=== PATIENT | female | born 1945 | race Caucasian/White ===

== ENCOUNTER 2017-09-24 08:14 | Observation (INO) | payer MEDICARE ==
--- NOTE | 2017-09-24 08:48 | ED ---
GI/ HPI - HPI Summary HPI Summary: This is scribe Reno Drummond documenting for Robert Paredes M.D. Patient is a 71 y/o F BIBA w/ c/o dizziness, weakness and inability to ambulate at her baseline. She reports Sx onset three days ago, worsening two days ago, and was taken to [facility] yesterday by daughter. She reports receiving IV fluids and antibiotics there, was diagnosed w/ UTI, and discharged to home with antibiotic and told to follow up with PCP. Patient cannot recall name of prescribed antibiotic in room. She states she still feels "rotten". Dizziness is characterized as room spinning. Difficulty walking is due to dizziness. She denies ear ringing but notes some nausea. Getting up and walking around aggravates dizziness. She reports while lying down she still experiences dizziness and that she wants to sleep a lot. While she does not specifically note any pain in room, on triage, associated pain was rated 7/10. It is also noted resting makes pain better and movement aggravates pain. In room, vitals are O2 sat 96, pulse 86. Patient also notes left ankle swelling. She has a strap on left ankle as well. Patient reports she had an hemangioma in spine, which was removed. However, surgery caused some left side paralysis. She has gone through physical therapy and can get around with a walker. I, Dr. Paredes, personally performed the services described in this documentation as scribed in my presence and it is both accurate and complete. - History of Current Complaint Stated Complaint: WEAKNESS Hx Obtained From: Patient Onset/Duration: Started Days Ago - Sx onset three days ago, Still Present Timing: Constant, Lasting Days - onset 3 days ago Current Severity: Severe - 7/10 on triage Pain Intensity: 7 Associated Signs and Symptoms: Positive: Dizziness, Weakness, Nausea, Other: - NEGATIVE: ear ringing POSITIVE: difficulty ambulating due to dizziness Aggravating Factor(s): Movement Alleviating Factor(s): Rest - Allergy/Home Medications Allergies/Adverse Reactions: Allergies Allergy/AdvReac Type Severity Reaction Status Date / Time Penicillins Allergy Rash Verified 09/24/17 08:22 Home Medications: Home Medications Baclofen TAB* [Lioresal TAB*] 10 mg PO DAILY 09/24/17 [History Confirmed ] Cholecalciferol TAB* [Vitamin D TAB*] 1 tab PO DAILY 09/24/17 [History Confirmed 09/24/17] Meloxicam [Mobic] 15 mg PO DAILY 09/24/17 [History Confirmed 09/24/17] Nitrofurantoin Monohyd/M-Cryst [Macrobid 100 mg Capsule] 100 mg PO BID 09/24/17 [History Confirmed 09/24/17] Omeprazole 40 mg PO DAILY 09/24/17 [History Confirmed 09/24/17] Pregabalin CAP(*) [Lyrica CAP(*)] 150 mg PO DAILY 09/24/17 [History Confirmed ] Rosuvastatin Calcium 5 mg PO DAILY 09/24/17 [History Confirmed 09/24/17] PMH/Surg Hx/FS Hx/Imm Hx History: Reports: Hx Renal Disease - UTI Sensory History: Denies: Hx Legally Blind, Hx Deafness Opthamlomology History: Denies: Hx Legally Blind EENT History: Denies: Hx Deafness Neurological History: Reports: Other Neuro Impairments/Disorders - partial leftside paralysis - Surgical History Surgery Procedure, Year, and Place: hemangioma removal 2004 Infectious Disease History: No Infectious Disease History: Denies: Traveled Outside the [place] in Last 30 Days - Family History Known Family History: Negative: Hypertension - none in father or mother , Diabetes - none in father or mother - Social History Alcohol Use: Occasionally Alcohol Amount: wine Substance Use Type: Reports: None Smoking Status (MU): Former Smoker Review of Systems Positive: Fatigue - weakness Positive: Other - NEGATIVE: ear ringing Positive: Nausea Neurological: Other - dizziness and difficulty ambulating due to dizziness All Other Systems Reviewed And Are Negative: Yes Physical Exam - Summary Physical Exam Summary: Appearance: The patient is well-nourished in no acute distress and in no acute pain. Skin: The skin is warm and dry and skin color reflects adequate perfusion. HEENT: The head is normocephalic and atraumatic. Slight amount of horizontal nystagmus, fast component to left. No other significant ocular findings. The conjunctivae are clear and without drainage. Nares are patent and without drainage. Mouth reveals moist mucous membranes and the throat is without erythema and exudate. The external ears are intact. The ear canals are patent and without drainage. The tympanic membranes are intact. Neck: The neck is supple with full range of motion and non-tender. There are no carotid bruits. There is no neck vein distension. Respiratory: Chest is non-tender. Crackles [address] in lungs bilaterally. No other significant findings. Cardiovascular: Heart is regular rate and rhythm. There is no murmur or rub auscultated. There is no peripheral edema and pulses are symmetrical and equal. Abdomen: The abdomen is soft and non-tender. There are normal bowel sounds heard in all four quadrants and there is no organomegaly palpated. Musculoskeletal: There is no back tenderness noted. Extremities are non-tender with full range of motion. There is good capillary refill. There is no peripheral edema or calf tenderness elicited. Neurological: Patient is alert and oriented to person, place and time. The patient has symmetrical motor strength in all four extremities. Cranial nerves are grossly intact. Deep tendon reflexes are symmetrical and equal in all four extremities. Psychiatric: The patient has an appropriate affect and does not exhibit any anxiety or depression. Triage Information Reviewed: Yes Vital Signs On Initial Exam: Initial Vitals Temp Pulse Resp BP Pulse Ox 98.4 F 90 21 110/58 96 09/24/17 08:19 09/24/17 08:19 09/24/17 08:19 09/24/17 08:19 09/24/17 08:19 Vital Signs Reviewed: Yes Diagnostics - Vital Signs Vital Signs Temp Pulse Resp BP Pulse Ox 09/24/17 08:19 98.4 F 90 21 110/58 96 - Laboratory Result Diagrams: 09/24/17 09:38 09/24/17 09:38 Lab Statement: Any lab studies that have been ordered have been reviewed, and results considered in the medical decision making process. - Ultrasound No standard instances Ultrasound Interpretation: Positive (See Comments) Ultrasound Interpretation Completed By: Radiologist - Gallbladder US: IMPRESSION : #. Normal size liver is remarkable for increased parenchymal echogenicity which may be seen in setting of hepatitis. No focal liver lesions evident. #. Adequately distended gallbladder is remarkable for diffuse minimal wall thickening measuring up to 3.2 mm, a nonspecific finding in setting of hepatitis , and a large volume of biliary sludge. No conspicuous cholelithiasis. #. Small volume of ascites. #. Suggestion of mild cortical atrophy and increased cortical echogenicity RIGHT kidney concerning for presence of medical renal disease. This report was reviewed by ED physician. - EKG 1012 Cardiac Rate: NL - rate of 75 BPM EKG Rhythm: Sinus Rhythm Ectopy: PVCs EKG Interpretation: vertical axis; no STEMI Re-Evaluation - Re-Evaluation First Eval Re-Evaluation Time: 13:04 Comment: Discussed results of labs and imaging. Patient is agreeable with plan for admission to hospital. GIGU Course/Dx - Course Course Of Treatment: Ms. Lawson presented with some vague complaints. She is taking trimethoprim sulfamethoxazole for presumed UTI. She was found to have hepatitis with mild ascites and a normal gallbladder. The hospitalists were asked to evaluate her for admission. - Diagnoses Provider Diagnoses: Hepatitis - Physician Notifications Discussed Care Of Patient With: Bakari Villarreal Time Discussed With Above Provider: 12:54 Instructed by Provider To: Other - Dr. Villarreal was consulted on patient's case at 12:54. Dr. Villarreal agrees to accept patient for admission to [facility] [place]. Discharge - Sign-Out/Discharge Documenting (check all that apply): Patient Departure - admit - Discharge Plan Condition: Good Disposition: ADMITTED TO [facility] - Billing Disposition and Condition Condition: GOOD Disposition: Admitted to [facility]
[2017-09-24] MEDS ORDERED: NS 0.9% 1000 ML* 1,000 ML IV ONE (09:34)
[2017-09-24 09:56] LABS: ABS Basophils 0 10^3/ul (0-0.2); ABS Eosinophils 0 10^3/ul (0-0.6); ABS Lymphocytes 0.4 10^3/ul (1.0-4.8); ABS Monocytes 0.7 10^3/ul (0-0.8); ABS Neutrophils 9.9 10^3/ul (1.5-7.7); ABS Nucleated RBC 0 10^3/ul; Eosinophil % 0.2 % (0-6); Hematocrit 32 % (35-47); Hemoglobin 10.5 g/dl (12.0-16.0); Lymphocyte % 3.3 % (25-47); Mean Corpuscular HGB Conc 33 g/dl (31-36); Mean Corpuscular Hemoglobin 28 pg (27-31); Mean Corpuscular Volume 84 fL (80-97); Nucleated Red Blood Cells % 0; Platelet Count 180 10^3/ul (150-450); Red Cell Distribution Width 15 % (10.5-15)
--- NOTE | 2017-09-24 12:00 | RAD ---
Indication: Hepatitis. Comparison: No relevant prior exams available on the [facility] PACS for comparison. Technique: RIGHT upper quadrant ultrasound. Report: Appropriate direction flow documented in the portal and hepatic veins. 18.1 cm liver is increased in echogenicity. Negative for focal hepatic lesions. Negative for intrahepatic biliary dilatation. 13 mm common bile duct. Negative for conspicuous stones within the visualized segment of the common bile duct. Adequately distended gallbladder is remarkable for diffuse minimal wall thickening measuring up to 3.2 mm and large volume of biliary sludge. No shadowing echogenic foci to indicate cholelithiasis. Negative for sonographic Encarnacion's sign. Atrophic pancreas without ductal dilatation or acute sonographic abnormality. Small volume of ascites at Morison's pouch. 10.5 x 4.0 x 5.3 cm RIGHT kidney cortical atrophy and increased cortical echogenicity favoring presence of medical renal disease. No focal renal lesions, conspicuous stones, or hydronephrosis. IMPRESSION: #. Normal size liver is remarkable for increased parenchymal echogenicity which may be seen in setting of hepatitis. No focal liver lesions evident. #. Adequately distended gallbladder is remarkable for diffuse minimal wall thickening measuring up to 3.2 mm, a nonspecific finding in setting of hepatitis, and a large volume of biliary sludge. No conspicuous cholelithiasis. #. Small volume of ascites. #. Suggestion of mild cortical atrophy and increased cortical echogenicity RIGHT kidney concerning for presence of medical renal disease.
[2017-09-24 13:58] LABS: Urine Appearance Clear; Urine Blood 1+ (Negative); Urine Color Yellow; Urine Ketones 1+ (Negative); Urine Protein Negative (Negative); Urine Red Blood Cell 2+(6-10/hpf) (Absent); Urine Specific Gravity 1.009 (1.010-1.030); Urine Urobilinogen Positive (Negative); Urine White Blood Cell 2+(11-20/hpf) (Absent)
[2017-09-24] MEDS ORDERED: Ciprofloxacin 200mg IVPREMIX(* 200 MG/100 ML BAG IV STA (15:42)
[2017-09-24] MEDS: traMADol TAB* 50 MG PO PRN (16:10)
--- NOTE | 2017-09-24 17:02 | RAD ---
INDICATION: Liver dysfunction COMPARISON: Gallbladder sonogram same date TECHNIQUE: Axial source images were obtained from the hemidiaphragms to the symphysis pubis following administration of oral contrast only. Coronal and sagittal reconstructed images were acquired. Lung bases: There is minimal atelectasis right lung base. Liver: The noncontrast CT appearance the liver is unremarkable. Gallbladder: The gallbladder is distended. There is a small amount of sludge or gravel in the dependent portion of the gallbladder. The common duct is dilated and there are multiple small gallstones in the distal common bile duct Spleen: Noncontrast CT appearance the spleen is unremarkable. Pancreas: Noncontrast imaging of the pancreas demonstrate no specific abnormalities. Evaluation is limited without intravenous contrast. Adrenal glands: There is no adrenal mass. Kidneys: The noncontrast CT appearance the kidneys are unremarkable. There is no hydronephrosis or nephrolithiasis. Adenopathy: There is no evidence of adenopathy by size criteria. Fluid collections: There are no free or localized fluid collections. Vessels:There are no significant atherosclerotic changes involving the aorta. There is no focal aneurysm. The iliac vessels are normal in caliber. The IVC appears normal. GI tract: There are no acute CT bowel findings. There is no obstruction. The stomach and small bowel appear normal. The lower GI tract is normal. The cecum, ileocecal valve, and terminal ileum appear normal. The appendix is visualized and appear normal. Pelvic organs: The uterus and adnexa appear normal Bladder: There are no bladder masses. Abdominal and pelvic soft tissues: The extraperitoneal abdominal and pelvic soft tissues appear normal.. Osseous structures: There are no acute osseous findings. Other: None IMPRESSION: IMAGING WITHOUT INTRAVENOUS CONTRAST SHOWS CHOLEDOCHOLITHIASIS AND A DISTENDED GALLBLADDER. CONSIDER GI REFERRAL.
--- NOTE | 2017-09-24 17:34 | HP ---
CC: Dr. Robles; Dr. Villarreal* ADMISSION HISTORY AND PHYSICAL: DATE OF ADMISSION: 09/24/17 PRIMARY CARE PROVIDER: Dr. Robles MY ATTENDING FOR THIS ADMISSION AND FOR TODAY: Dr. Karel Villarreal* (dictated by Simba Meehan NP). CHIEF COMPLAINT: Weakness and malaise. HISTORY OF PRESENT ILLNESS: This is a 71-year-old female patient who went to the ER at [place] yesterday for the same complaint. The patient stated she was feeling weak. She does have urinary incontinence at baseline. Her urine was screened while she was in the ED there. She was treated with IV antibiotics that is unknown and sent home on nitrofurantoin until to follow up with her primary care provider. She states today that her weakness is worse that she has just generalized malaise. Overall, she is feeling very fatigued and it has been difficult for her to function over the last 24 hours. She called emergency services. She was brought here for evaluation. Upon exam in the emergency department, she has no fever; however, she does have abnormal lab values. At this point, her liver function is greatly elevated. Creatinine slightly elevated. She does have a mild white count. It appears that she may have an acute hepatitis, although we are unsure at this time. We are being asked to evaluate for admission. She will be admitted to observation status. PAST MEDICAL HISTORY: Significant for chronic pain, left-sided hemiparesis. PAST SURGICAL HISTORY: Significant for resection and evacuation of a cervical hemangioma in 2004. MEDICATIONS: Current medications at home: 1. Baclofen 10 mg 3 times a day. 2. Hydrocodone unknown dose 3 times a day. 3. Lyrica 150 mg 3 times a day. 4. Omeprazole 40 mg daily. 5. Meloxicam 1 tablet daily. 6. Vitamin D 50,000 units weekly. 7. Rosuvastatin 1 tablet daily, again unknown dose. ALLERGIES: The patient has an allergy to PENICILLIN for which she has full body rash. SOCIAL HISTORY: The patient does not smoke. Drinks alcohol only socially. Denies any illicit drug use. FAMILY HISTORY: She does have father with some cardiac disease. Her healthcare proxy is her daughter, Shea, who is at the bedside. REVIEW OF SYSTEMS: The patient is complaining about some neck pain and general malaise as stated. She has no fever or chills. She does have marked general weakness and fatigue. She has chronic numbness and tingling on the left upper extremity and the left lower extremity. She denies any chest pain. No shortness of breath. No cough. No nausea, vomiting, diarrhea, or constipation. She does have mild right upper quadrant pain. Denies any rashes. Denies any bleeding or bruising. Denies excessive thirst or urination. She does have some urinary incontinence and some frequency at baseline. No chest pain, palpitations, or further constitutional complaints. PHYSICAL EXAMINATION GENERAL: The patient is alert, appears tired. VITAL SIGNS: Currently, blood pressure 150/66, heart rate 61, respiratory rate 14, O2 saturation 99% on room air. HEENT: The patient is atraumatic, normocephalic. PERRLA with nonicteric sclerae. Oral mucosa is moist. Tongue is midline. NECK: Supple. No JVD noted and no carotid bruit auscultated. LUNGS: Clear bilaterally to auscultation with no wheezing, rhonchi, or rales. CARDIOVASCULAR: S1, S2 present. Rate and rhythm are regular. No murmurs, gallops, or rubs appreciated. ABDOMEN: Soft, mildly distended. She has moderate to severe right upper quadrant pain around the area with palpation. She does not appear to have any organomegaly. : Deferred. MUSCULOSKELETAL: There is no clubbing and no cyanosis. No edema. She has +2 distal pulses palpable at baseline. She ambulates with a walker. NEUROLOGIC: She has left side weaker than the right secondary to her surgery. This is her baseline. Left girth is weaker. She does wear a brace. She cannot plantar flex or dorsiflex in the left lower extremity. This is also her baseline. PSYCHIATRIC: She is cooperative and appropriate, although she does appear to have a flat affect. LABORATORY DATA: WBCs 11.0, RBCs 3.80, hemoglobin 10.5, hematocrit 32, platelets 180. Sodium 136, potassium 4.3, chloride 104, CO2 25, BUN 19, creatinine 1.19, GFR 45, glucose 120. Lactic acid 0.7. Calcium 8.5. Magnesium 2.0. Bilirubin 2.00 up from 1.1 yesterday, AST is 1125 up from 538 yesterday, ALT is 828 up from 616 yesterday, and alk phos is 630 up from 480 yesterday. Troponin is negative at 0.02. Total protein 6.1, albumin 3.4, globulin 2.7, TSH is 2.44. Urinalysis shows yellow clear urine, pH of 5, specific gravity of 1.009, 1+ ketones, 1+ blood, positive for urobilinogen, trace leuk esterase, 2+ wbc's, 2+ rbc's and squamous epithelial cells present; negative for nitrites and negative for bacteria, negative for glucose. IMPRESSION: This is a 71-year-old female patient with general fatigue and malaise with transaminitis and also recent diagnosis of urinary tract infection. PLAN: The patient will be admitted to observation as stated earlier. DIAGNOSES: 1. Weakness and fatigue. It is unclear whether this is secondary to her urinary tract infection or underlying hepatitis. Given her laboratory values today, it is questionable that the patient may have an acute on chronic hepatitis. We will continue antibiotics for her urinary tract infection and reach out to the pharmacy for the least liver toxic antibiotic that we have available and appropriate for her. We talked with Dr. Lavonne Segura of GI. She did have an ultrasound of the gallbladder earlier today, which revealed common bile duct is 13 mm, normal sized liver, remarkable for increased parenchymal echogenicity, which may be seen in the setting of hepatitis; however , there are no focal liver lesions evident. She has an adequately distended gallbladder, remarkable for diffuse minimal wall thickening measuring 3.2 mm and nonspecific finding and in the setting of hepatitis and large volume of biliary sludge, no suspicious cholelithiasis, a small volume of ascites, suggestion of mild cortical atrophy and increased cortical echogenicity of the right kidney concerning for presence of medical renal disease. Dr. Segura has also recommended that we do a CAT scan with oral contrast only to further evaluate her GI tract. Given her mildly elevated renal function, we will hold off on IV contrast. Dr. Segura will see her. In terms of the rest of her transaminitis, we will follow her labs daily and withhold any liver toxic medications. 2. For her chronic pain, I stopped her meloxicam, placed her on tramadol, which hopefully will have minimal impact on her liver function. We can continue her baclofen 3 times a day. Also, changing her to gabapentin from Lyrica again because of the liver dysfunction. For now, she will be n.p.o. We will start her on mild dose of fluids and maintenance. 3. For DVT prophylaxis, her INR is actually normal. I thought it would be elevated given her liver dysfunction; however, we would still place her on SCDs because this may elevate at anytime. We will also check her coagulation studies daily to ensure that these are not elevating as well. Again, DVT prophylaxis with SCDs only. 4. She is a full code. As stated earlier, her daughter, Shea is her healthcare proxy. The rest of the patient's course will be determined by further diagnostics, laboratories, and any other input from other providers as warranted during this admission. TIME SPENT: I have spent an excess of 1 hour, [id number] with the patient, going through her plan of care and coordinating with other providers in terms of her admission. This plan has been discussed with Dr. Karel Villarreal, the attending and he is in agreement. SIMBA MEEHAN, HILARIO [id number]/CPS #: [id number]
--- NOTE | 2017-09-24 18:56 | CONS ---
CC: Urvashi Mohan NP; Dr. Lavonne Segura GASTROENTEROLOGY CONSULTATION: DATE OF CONSULT: 09/24/17 HOSPITAL PROVIDER: Urvashi Mohan NP REASON FOR CONSULT: Elevated liver enzymes. HISTORY OF PRESENT ILLNESS: Ms. Lawson is a pleasant 71-year-old female with a history of partial left-sided hemiparesis, hyperlipidemia, who presented to [facility] ER after being discharged from an outside hospital for a urinary tract infection. She came in with complaints with persistent weakness over the last few days. Upon arrival to the emergency room, she was noted to have a slightly elevated WBC count of 11.0, renal insufficiency with a creatinine of 1.19 and elevated liver enzymes including a total bilirubin of 2.0 , AST of 1125, ALT 828, alkaline phosphatase 630. Her urinalysis confirmed a urinary tract infection. Gastroenterology was consulted for further evaluation of the patient's elevated liver enzymes. The patient denies any current abdominal pain, nausea, vomiting, fever, chills, myalgias, change in bowel habits, rectal bleeding, or history of jaundice. She denies a prior history of elevated liver enzymes. She unfortunately has not had recent lab work done from her primary care physician as her brother recently and she does not want to be a burden to her daughter, so we do not have current baseline enzymes for her at this time. She does admit to occasional use of wine with dinner. She denies tobacco, illicit drug use. Her medication list does include oxycodone, Lyrica, Mobic and baclofen for chronic neck pain, and rosuvastatin for hyperlipidemia. She has been on all these medications for several years. She was recently started on nitrofurantoin yesterday for her urinary tract infection. No history of tattoos, blood transfusions, or need for hemodialysis. PAST MEDICAL HISTORY: 1. GERD. 2. Hyperlipidemia. 3. Vitamin D deficiency. 4. Partial left hemiparesis. 5. Chronic neck pain. PAST SURGICAL HISTORY: 1. Removal of cervical hemangioma in 2004. HOME MEDICATIONS: 1. Baclofen. 2. Cholecalciferol. 3. Meloxicam. 4. Nitrofurantoin. 5. Omeprazole 40 mg daily. 6. Lyrica. 7. Rosuvastatin. ALLERGIES TO MEDICATIONS: PENICILLIN, which causes a rash. FAMILY HISTORY: Denies history of gastrointestinal malignancie or liver issues. SOCIAL HISTORY: Occasionally drinks wine. Denies tobacco or illicit drug use. REVIEW OF SYSTEMS: Review of systems on a 14-point scale has been reviewed. All pertinent positives and negatives have been noted above in the HPI. PHYSICAL EXAM: Vital Signs: Temperature 98.0, pulse 60, respirations 16, 98% on room air, blood pressure 143/66. Generally, the patient is alert and oriented x3, in no acute distress. HEENT: Normocephalic, atraumatic. Extraocular muscles intact. Mild scleral icterus bilaterally. Cardiovascular Exam: Regular rate and rhythm. Pulmonary Exam: Clear to auscultation bilaterally. Abdominal Exam: Positive bowel sounds. Soft, nontender, nondistended. No rebound, guarding, or rigidity. No hepatosplenomegaly. No surgical scars. Extremities: No clubbing, cyanosis, or edema. Her left lower extremity is in an immobilizer. Neurological Exam: No gross focal deficits are appreciated. DIAGNOSTIC STUDIES/LAB DATA: WBC is 11.0, hemoglobin 10.5, hematocrit 32, platelets 180. INR 1.0. Sodium 136, potassium 4.3, chloride 104, CO2 25, anion gap 7, BUN 19, creatinine 1.19, lactic acid 0.7, calcium 8.5. Total bilirubin 2.0, AST 1125, ALT 828, alkaline phosphatase 630. Troponin 0.02. Total protein 6.1. TSH 2.44. ASSESSMENT AND PLAN: Ms. Lawosn is a pleasant 71-year-old female with a past medical history of hyperlipidemia, on rosuvastatin, partial left-sided hemiparesis, chronic neck pain, on oxycodone, Lyrica, baclofen, meloxicam, who presented to [facility] 1 day after discharge from an outside hospital for symptoms of weakness and was noted to significantly elevated liver function tests. Yesterday, she was discharged after being diagnosed with a urinary tract infection and elevated liver enzymes. She was started on nitrofurantoin. She admits to drinking occasionally and denies family history of liver issues including fatty liver. She did have a gallbladder ultrasound that was performed in the ER revealing a normal size liver and a distended gallbladder with diffuse minimal wall thickening measuring up to 3.2 mm. There was a large amount of biliary sludge noted and small volume of abdominal ascites. The CBD was noted to be 13 mm. Her pancreas appeared atrophic. Her liver enzymes with a total bilirubin of 2.0, AST 1125, ALT 828, and alkaline phosphatase 630. She denies a prior history of elevated liver enzymes; however , she has been unable to get recent lab work done due to her brother passing away and not wanting to be a burden of her daughter. She denies any current myalgias or recent travels. Denies any previous history of tattoos or blood transfusions or need for hemodialysis. Her INR on admission was 1.0. She is mentating normally at this time and not showing signs of acute liver failure. Given elevations in liver enzymes, would at first consider any medications that could be contributing including oxycodone; however, she states she takes this medicine 3 times daily and usually not more than this. She is also on rosuvastatin, Mobic, and recently started on nitrofurantoin for this urinary tract infection, which could all be contributing to her elevated liver enzymes. I discussed this case with Urvashi Mohan and we will order a CT abdomen/pelvis with oral contrast due to dilated CBD of 13 mm seen on gallbladder ultrasound to rule out choledocholithiasis. She has renal insufficiency so will hold off on IV contrast. I would continue to monitor the patient's INR to follow the patient's synthetic liver function if CT is negative for choledocholithiasis given significant elevation in liver enzymes. If these elevations are secondary to medications, these should progressively return back to normal after eliminating the culprit. If symptoms do not improve , we will consider performing an autoimmune liver workup and possible liver biopsy in the future for further evaluation if elevation in liver enzymes persist. In the meantime, would encourage IV fluid hydration, discontinuing nitrofurantoin, oxycodone, Mobic and rosuvastatin in order to see if liver enzymes improve. Thank you, Urvashi Mohan, for allowing us to participate in the care of your patient. If you should have any further questions or concerns, please do not hesitate to contact us. [id number]/[facility] #: [id number] EDELMIRA
[2017-09-24] MEDS: Gabapentin CAP(*) 100 MG PO SCH (21:38)
[2017-09-24] MEDS: Baclofen TAB* 10 MG PO SCH (21:38)
[2017-09-25] MEDS: traMADol TAB* 50 MG PO PRN ×2 (02:02→16:37)
[2017-09-25] MEDS ORDERED: Omeprazole CAP* 20 MG ONE (05:11)
[2017-09-25] MEDS: Ciprofloxacin 200mg IVPREMIX(* 200 MG/100 ML BAG IV SCH ×2 (05:15→17:03)
[2017-09-25 06:36] LABS: ABS Basophils 0 10^3/ul (0-0.2); ABS Eosinophils 0.3 10^3/ul (0-0.6); ABS Lymphocytes 1.2 10^3/ul (1.0-4.8); ABS Monocytes 0.5 10^3/ul (0-0.8); ABS Neutrophils 5.2 10^3/ul (1.5-7.7); ABS Nucleated RBC 0 10^3/ul; Eosinophil % 3.6 % (0-6); Hematocrit 31 % (35-47); Hemoglobin 10.1 g/dl (12.0-16.0); Lymphocyte % 16.2 % (25-47); Mean Corpuscular HGB Conc 33 g/dl (31-36); Mean Corpuscular Hemoglobin 28 pg (27-31); Mean Corpuscular Volume 84 fL (80-97); Nucleated Red Blood Cells % 0.1; Platelet Count 173 10^3/ul (150-450); Red Blood Count 3.63 10^6/ul (4.00-5.40); Red Cell Distribution Width 16 % (10.5-15); White Blood Count 7.1 10^3/ul (3.5-10.8)
[2017-09-25 06:43] LABS: INR 1.04 (0.77-1.02)
[2017-09-25 06:49] LABS: EGFR Non-African American 75.5 (>60)
[2017-09-25] MEDS ORDERED: Omeprazole CAP* 20 MG PO SCH (07:30)
[2017-09-25] MEDS: Baclofen TAB* 10 MG PO SCH ×2 (09:48→16:37)
[2017-09-25] MEDS: Gabapentin CAP(*) 100 MG PO SCH ×2 (09:48→16:37)
[2017-09-25] MEDS ORDERED: D5LR 20 MEQ KCL 1000 ML BAG* 1,000 ML IV SCH (10:00)
--- NOTE | 2017-09-25 14:01 | TRS ---
CC: Dr. Robles; Dr. Aggarwal; Dr. Segura.* TRANSFER SUMMARY: DATE OF ADMISSION: 09/24/17. DATE OF TRANSFER: To [facility] in [place], [place], . PRIMARY CARE PROVIDER: Dr. Braswell. ADMITTING PHYSICIAN: Dr. Aggarwal. REASON FOR TRANSFER: Transaminitis with common bile duct obstruction with common bile duct stone, need for ERCP. SECONDARY DIAGNOSIS: History of resection and evacuation of cervical hemangioma in 2004 with resultant left-sided hemiparesis. CURRENT MEDICATIONS: Include: 1. D5LR 20 mEq of potassium at 75 mg an hour. 2. Baclofen 10 mg p.o. t.i.d. 3. Ciprofloxacin 200 mg every 12 hours. 4. Gabapentin 200 mg 3 times a day. 5. Omeprazole 40 mg p.o. daily. 6. Ultram 50 mg on a p.r.n. basis. LABORATORY DATA AND STUDIES PERFORMED DURING THE HOSPITAL STAY: Included: On 09/25/17, white blood cell count of 7.1, hemoglobin of 10.1, hematocrit of 31 , and platelets of 173. Sodium was 137, potassium 4.3, chloride 104, carbon dioxide 24, BUN 13, creatinine 0.76. Liver function test showed bilirubin of 1.2, AST of 328, ALT of 548, alkaline phosphatase of 554. Urinalysis on admission shows white blood cell +2, RBCs +2, urine urobilinogen positive, blood +1, ketones +1, negative for bacteria, negative for nitrates. Acute hepatitis panel was negative. CT of the abdomen and pelvis obtained on 09/24/17. Impression: "Imaging without intravenous contrast showed choledocholithiasis and distended gallbladder. Consider GI referral." Gallbladder ultrasound. Impression: "Normal size liver is remarkable for increased parenchymal echogenicity, which may be seen in a setting of hepatitis. No focal liver lesions evident. Adequately distended gallbladder is remarkable for diffuse, minimal wall thickening measuring upto 3.2 mm and nonspecific findings in the setting of hepatitis and a large volume of biliary sludge. No suspicious for cholelithiasis. Small volume of ascites. Suggestive of mild cortical atrophy and increased cortical echogenicity of the right kidney concerning for presence of medical renal disease." "Furthermore, in the body of report it showed 13 mm common bile duct, but no stones within the visualized segment of the common bile duct." HOSPITALIZATION COURSE: Amaris Lawson is a 71-year-old female with history of chronic left-sided weakness due to surgery for hemangioma in the past, who presented complaining of discolored urine. Initially, she was seen at [facility] in [place], [place] where she was prescribed nitrofurantoin for possibility of UTI. At that point, she did have a liver function test evaluation and they were increased. It does not appear that, that was addressed at [facility]. The patient came into our facility complaining of worsening weakness and continuation of problems with urine of dark color. Her liver function test at that point was markedly elevated with bilirubin of 2. She was admitted to our facility and Dr. Segura from Gastroenterology saw the patient in consultation. Initially, the patient apparently had some right upper quadrant abdominal pain, but that resolved by the time of transfer today. The patient's urinalysis was questionable and ciprofloxacin was started at admission. Dr. Segura saw the patient in consultation and recommended ultrasound of the gallbladder and common bile duct, which showed common bile duct dilatation. CT of the abdomen also showed common bile duct stones. On 09/25/17, the patient's liver function test were improved. Nevertheless as per Dr. Segura's recommendation, the patient will need ERCP that unfortunately is not available at our facility. I spoke with the patient who requested to be transferred to [facility] as her first choice. I contacted [facility] and hospitalist there accepted the patient for transfer for ERCP. At the time of transfer, the patient is hemodynamically stable, afebrile, alert and oriented. On physical exam, blood pressure of 142/73, heart rate of 68 and regular, respiratory rate 20, oxygen saturation 97% on room air, temperature 97.4. General: The patient is very pleasant 71-year-old female, who is in no acute distress. Alert, awake, oriented x3. HEENT: Head: Atraumatic, normocephalic. Eyes: Pupils are equal, reactive to light and accommodation. Oropharynx is clear. Mucosa moist. Neck: Supple. No JVD. No bruits bilaterally. Cardiovascular: Regular rate and rhythm. No murmur. Respiratory: Clear to auscultation bilaterally. Abdomen: Soft, nontender. Bowel sounds are present in all 4 quadrants. Extremities: There is no edema. Pulses are +2 bilaterally. No clubbing or cyanosis. Neuro Evaluation: Speech is clear. Cranial nerves II through XII are grossly intact. Motor strength is 5/5 bilaterally. Notable for mild left-sided upper extremity and lower extremity weakness, which is chronic. The patient is going to be transferred to [facility] for ERCP and further evaluation of common bile duct stone/choledocholithiasis. Please note that this is a short summary of the patient's hospital stay. Please refer to further medical record for details. TIME SPENT: Approximately 45 minutes were spent on the patient's transfer. [id number]/[facility] #: [id number] EDELMIRA
[2017-09-25 15:35] VITALS: BP 154/66
== END 2017-09-25 17:45 | disposition short-term general hospital (02) ==
LOC: ED 08:14 → MED 14:39
PROVIDERS: ADMIT Internal Medicine; ATTEND Internal Medicine
DX: R53.1 Weakness (principal); K75.9 Inflammatory liver disease, unspecified; R42 Dizziness and giddiness; R53.83 Other fatigue; R11.0 Nausea; Z87.891 Personal history of nicotine dependence
CPT/HCPCS: 36415; 74176; 76705; 80053; 80074; 81003; 81015; 83605; 83735; 84443; 84484; 85025; 85610; 87086; 93005; 99283; A9270-GY; G0378; J0744

== ENCOUNTER 2020-08-28 20:36 | Observation (INO) ==
[2020-08-28] MEDS ORDERED: Diltiazem IV push/loading dose 5 MG/ML 5 ML vial (25 mg) IV SLOW PU ONE (21:20)
[2020-08-28 21:26] LABS: ABS Eosinophils 0.1 10^3/ul (0-0.6); ABS Lymphocytes 1.5 10^3/ul (1.0-4.8); ABS Monocytes 0.5 10^3/ul (0-0.8); ABS Neutrophils 7.6 10^3/ul (1.5-7.7); Eosinophil % 0.5 %; Hematocrit 38 % (35-47); Hemoglobin 12.4 g/dL (12.0-16.0); Lymphocyte % 15.7 %; Mean Corpuscular HGB Conc 33 g/dL (31-36); Mean Corpuscular Hemoglobin 27 pg (27-31); Mean Corpuscular Volume 82 fL (80-97); Mean Platelet Volume 8.7 fL (7.4-10.4); Platelet Count 300 10^3/uL (150-450); Red Blood Count 4.64 10^6 /uL (3.70-4.87); Red Cell Distribution Width 16 % (10-15); White Blood Count 9.7 10^3/uL (3.5-10.8)
[2020-08-28 21:47] LABS: Troponin I 0.01 ng/mL (<0.03)
[2020-08-28 22:08] LABS: TSH Ultra Thyroid Stim Horm 2.66 mcIU/mL (0.34-5.60)
[2020-08-28 22:57] LABS: Anion Gap 6 mmol/L (2-11); Blood Urea Nitrogen 174 mg/dL (6-24); CO2 Carbon Dioxide 27 mmol/L (22-32); Chloride 104 mmol/L (101-111); Glucose 105 mg/dL (70-100); Sodium 137 mmol/L (135-145)
[2020-08-28 22:58] LABS: ALT 16 U/L (7-52); Albumin 3.9 g/dL (3.2-5.2); Albumin/Globulin Ratio 1.2 (1-3); Alkaline Phosphatase 59 U/L (35-149); Calcium 8.8 mg/dL (8.6-10.3); EGFR African American 63.7 (>60); EGFR Non-African American 52.7 (>60); Globulin 3.2 g/dL (2-4); Total Protein 7.1 g/dL (6.4-8.9)
[2020-08-29 01:29] LABS: Hematocrit 36 % (35-47)
[2020-08-29 01:47] LABS: Calcium 8.6 mg/dL (8.6-10.3); EGFR African American 74.5 (>60); EGFR Non-African American 61.5 (>60); Magnesium 1.9 mg/dL (1.9-2.7); Potassium 3.7 mmol/L (3.5-5.0)
[2020-08-29] MEDS ORDERED: Diltiazem (ADVAN VIAL) 100 MG/100 ML ADDV.BAG IV SCH (02:00)
[2020-08-29 02:09] LABS: Phosphorus 3.5 mg/dL (2.5-5.0)
[2020-08-29] MEDS ORDERED: Potassium Chlor 20 meq TAB.ER PO ONE (08:22)
[2020-08-29] MEDS ORDERED: Magnesium Sulfate 2 gm BAG 2 GM/50 ML BAG IVPB ONE (08:23)
[2020-08-29] MEDS ORDERED: fentaNYL 100 mcg/2 ml 50 MCG/ML VIAL ONE (12:56)
[2020-08-29] MEDS ORDERED: Flumazenil 0.5 mg/5 ml 0.1 MG/ML 5 ml VIAL ONE (12:56)
[2020-08-29] MEDS ORDERED: Naloxone 0.4 mg VIAL 0.4 mg/ml 1 ml VIAL ONE (12:56)
[2020-08-29] MEDS ORDERED: Midazolam 5 mg/5 ml VIAL 1 mg/ml 5 ml VIAL (5 mg) ONE (12:56)
[2020-08-29 16:45] VITALS: BP 118/56
== END 2020-08-29 16:50 | disposition home or self-care (01) ==
LOC: MEDTELE 20:36 → ED 20:36
PROVIDERS: ADMIT Pediatrics; ATTEND Internal Medicine

== ENCOUNTER 2021-04-05 18:33 | Observation (INO) ==
[2021-04-05 19:32] LABS: Hematocrit 27 % (35-47); Hemoglobin 8.1 g/dL (12.0-16.0); Mean Corpuscular HGB Conc 31 g/dL (31-36); Mean Corpuscular Hemoglobin 20 pg (27-31); Mean Corpuscular Volume 66 fL (80-97); Platelet Count 345 10^3/uL (150-450); Red Blood Count 4.01 10^6 /uL (3.70-4.87); Red Cell Distribution Width 21 % (10-15); White Blood Count 9.7 10^3/uL (3.5-10.8)
[2021-04-05 19:57] LABS: ALT 9 U/L (7-52); AST 15 U/L (13-39); Albumin 3.9 g/dL (3.2-5.2); Albumin/Globulin Ratio 1.3 (1-3); Alkaline Phosphatase 65 U/L (35-149); Anion Gap 5 mmol/L (2-11); Blood Urea Nitrogen 16 mg/dL (6-24); CO2 Carbon Dioxide 30 mmol/L (22-32); Calcium 8.9 mg/dL (8.6-10.3); Chloride 100 mmol/L (101-111); Globulin 3.1 g/dL (2-4); Glucose 101 mg/dL (70-100); Sodium 135 mmol/L (135-145); eGFR CKD-EPI 58.8 (>60)
[2021-04-05 20:02] LABS: ABS Eosinophils 0.2 10^3/ul (0-0.6); ABS Lymphocytes 1.3 10^3/ul (1.0-4.8); ABS Monocytes 0.7 10^3/ul (0-0.8); ABS Neutrophils 7.5 10^3/ul (1.5-7.7); Eosinophil % 1.9 %; Lymphocyte % 13.4 %
[2021-04-05 20:12] LABS: TSH Ultra Thyroid Stim Horm 6.21 mcIU/mL (0.34-5.60)
[2021-04-05 23:41] LABS: % Iron Saturation 4 % (15-55); Iron < 20 ug/dL (50-212); Total Iron Binding Capacity 463 mcg/dL (250-450); Transferrin 331 mg/dL (203-362); Unsaturated Iron Binding 443 ug/dL
[2021-04-06 00:01] LABS: Ferritin 4.2 ng/mL (11-307)
[2021-04-06 00:05] LABS: LDH 197 U/L (140-271)
[2021-04-06 00:31] LABS: Folate 14.41 ng/mL (5.90-24.80)
[2021-04-06 00:32] LABS: Vitamin B12 92 pg/mL (180-914)
[2021-04-06] MEDS ORDERED: Iron Sucrose 200 MG in NS 0.9% 100 ml BAG 100 ML IVPB ONE ×2 (01:09→19:30)
[2021-04-06 02:42] LABS: Hematocrit 24 % (35-47); Hemoglobin 7.5 g/dL (12.0-16.0)
[2021-04-06 03:03] LABS: Urine Appearance Cloudy; Urine Bilirubin Negative (Negative); Urine Blood 2+ (Negative); Urine Color Yellow; Urine Glucose Negative (Negative); Urine Ketones Negative (Negative); Urine Nitrite Negative (Negative); Urine Protein Negative (Negative); Urine Specific Gravity 1.009 (1.002-1.030); Urine Urobilinogen Negative (Negative)
[2021-04-06 03:34] LABS: Urine Bacteria 2+ (Absent); Urine Red Blood Cell 1+(3-5/hpf) (Absent); Urine Squamous Epithelial Cell Present (Absent); Urine White Blood Cell 2+(11-20/hpf) (Absent)
[2021-04-06 06:22] LABS: INR 1.59 (0.86-1.15)
[2021-04-06] MEDS ORDERED: Ondansetron 4 mg VIAL 2 MG/ML 2 ml VIAL IV PRN (06:31)
[2021-04-06 06:32] LABS: Calcium 8.7 mg/dL (8.6-10.3); Potassium 3.8 mmol/L (3.5-5.0); eGFR CKD-EPI 78.9 (>60)
[2021-04-06] MEDS ORDERED: Prochlorperazine 5 mg/ml 2 ml VIAL (10 mg) IV PRN (06:32)
[2021-04-06 06:44] LABS: ABS Lymphocytes 0.9 10^3/ul (1.0-4.8); ABS Monocytes 0.5 10^3/ul (0-0.8); ABS Neutrophils 4.3 10^3/ul (1.5-7.7); Eosinophil % 0.8 %; Hematocrit 25 % (35-47); Hemoglobin 7.7 g/dL (12.0-16.0); Lymphocyte % 15.8 %; Mean Corpuscular HGB Conc 30 g/dL (31-36); Mean Corpuscular Hemoglobin 20 pg (27-31); Mean Corpuscular Volume 66 fL (80-97); Mean Platelet Volume 7.8 fL (7.4-10.4); Platelet Count 303 10^3/uL (150-450); Red Blood Count 3.83 10^6 /uL (3.70-4.87); Red Cell Distribution Width 21 % (10-15); White Blood Count 5.8 10^3/uL (3.5-10.8)
[2021-04-06] MEDS: Cyanocobalamin INJ 1,000 MCG/ML VIAL 1 ML VIAL IM SCH (09:33)
[2021-04-06 15:29] LABS: Hematocrit 30 % (35-47); Hemoglobin 9.2 g/dL (12.0-16.0)
[2021-04-07 06:34] LABS: Calcium 8.5 mg/dL (8.6-10.3); Potassium 3.4 mmol/L (3.5-5.0); eGFR CKD-EPI 86.8 (>60)
[2021-04-07 07:06] LABS: ABS Basophils 0.1 10^3/ul (0-0.2); ABS Eosinophils 0.1 10^3/ul (0-0.6); ABS Lymphocytes 1.7 10^3/ul (1.0-4.8); ABS Monocytes 0.7 10^3/ul (0-0.8); ABS Neutrophils 4.3 10^3/ul (1.5-7.7); Eosinophil % 1.6 %; Hematocrit 27 % (35-47); Hemoglobin 8.5 g/dL (12.0-16.0); Lymphocyte % 24.9 %; Mean Corpuscular HGB Conc 31 g/dL (31-36); Mean Corpuscular Hemoglobin 22 pg (27-31); Mean Corpuscular Volume 68 fL (80-97); Mean Platelet Volume 8.4 fL (7.4-10.4); Platelet Count 298 10^3/uL (150-450); Red Blood Count 3.97 10^6 /uL (3.70-4.87); Red Cell Distribution Width 23 % (10-15)
[2021-04-07] MEDS ORDERED: Potassium Chlor 10 meq TAB PO ONE (07:33)
[2021-04-07 08:10] LABS: Anisocytosis 2+; Microcytosis 1+; Polychromasia 1+
[2021-04-07] MEDS: Cyanocobalamin INJ 1,000 MCG/ML VIAL 1 ML VIAL IM SCH (09:03)
[2021-04-07 13:38] VITALS: BP 127/57
[2021-04-07 14:34] LABS: Hematocrit 29 % (35-47)
[2021-04-07 16:35] LABS: Hematocrit for Retic CNT 29 % (35-47); Immature Retic Fraction 0.62; RBC Retic Count 4.18 10^6/uL (3.70-4.87)
[2021-04-07 16:36] LABS: Corrected Retic Count 1.4 % (0.5-1.5)
[2021-04-08 12:13] LABS: Methylmalonic Acid 0.42 nmol/mL (<=0.40)
== END 2021-04-07 17:35 | disposition home or self-care (01) ==
LOC: EDHOLD 18:33 → ED 18:33 → SUATTDRO 23:37 → EDHOLD 04-06 08:59 → MEDTELE 04-06 09:11
PROVIDERS: ADMIT Internal Medicine; ATTEND Internal Medicine